=== PATIENT | male | born 1960 | race African-American/Black ===

== ENCOUNTER → 2020-08-02 | Outpatient (CLI) | payer OTHER ==
[2020-08-02 12:27] LABS: INR 0.92; PROTHROMBIN TIME 12.8 seconds (11.9-14.5)
[2020-08-02 12:28] LABS: PARTIAL THROMBOPLASTIN TIME 30.9 seconds (23.8-35.5)
[2020-08-02 12:31] LABS: BLOOD UREA NITROGEN 11 mg/dL (7-26); BUN/CREATININE RATIO 12 (6-25); EST GLOMERULAR FILTRATION RATE > 60 ML/MIN (60-)
[2020-08-02 12:42] LABS: HEMATOCRIT 36.9 % (38.2-49.6); HEMOGLOBIN 11.4 g/dL (14.0-18.0)
== END ==
LOC: DX 11:53
PROVIDERS: ATTEND Internal Medicine Infectious Disease
DX: M86.161 Other acute osteomyelitis, right tibia and fibula (principal)
CPT/HCPCS: 36415; 36569; 71045; 82565; 84520; 85014; 85018; 85049; 85610; 85730